=== PATIENT | female | born 1980 | race Caucasian/White ===

== ENCOUNTER → 2016-10-10 | Outpatient (CLI) | payer BC ==
--- NOTE | 2016-10-10 17:31 | XR ---
EXAMINATION TYPE: XR shoulder complete LT DATE OF EXAM: 10/10/2016 5:24 PM CLINICAL HISTORY: pain COMPARISON: NONE TECHNIQUE: Three views of the left shoulder are obtained. FINDINGS: There is no acute fracture/dislocation evident. The acromioclavicular and glenohumeral stan int spaces appear within normal limits. The visualized ribs are intact and unremarkable. IMPRESSION: 1. There is no acute fracture or dislocation. ICD 10 NO FRACTURE, INITIAL EVALUATION
== END ==
LOC: RADXRMAIN 17:11
PROVIDERS: ATTEND Family Medicine
DX: M25.512 Pain in left shoulder (principal)

== ENCOUNTER → 2016-10-22 | Outpatient (CLI) | payer BC ==
--- NOTE | 2016-10-22 18:24 | MR ---
EXAMINATION TYPE: MR shoulder LT wo con DATE OF EXAM: 10/22/2016 5:35 PM COMPARISON: Plain film second October 2016, October 2016 HISTORY: Left shoulder pain, S/P fall on ice 4 months ago TECHNIQUE: Multiplanar, multisequence imaging of the left shoulder is performed without contrast. FINDINGS: Rotator Cuff: There is abnormal increased signal within the rotator cuff, fluid signal is present at the level of the acromion tip. Increased signal on T1 and T2-weighted sequences present within the th ickened tendon at the level of the insertion. Acromioclavicular Joint: Intact Glenohumeral Joint: No significant arthropathy. Small amount of joint fluid. Labrum: The labrum appears grossly intact given limitation of non-arthrogram study. Biceps Tendon: The long head of biceps is in normal location within bicipital groove. Bone marrow signal: No focal abnormal marrow signal is appreciated. Other: Some fluid signal present in the subacromial subdeltoid bursa. The distal acromion is downturn ed. IMPRESSION: Suspect underlying tendinosis of the rotator cuff, a partial thickness tear is also suspected, there may be a distal acromial spur with impingement, correlate.
== END | disposition home or self-care (01) ==
LOC: RADMRIMAIN 16:42
PROVIDERS: ATTEND Orthopaedic Surgery
DX: M25.512 Pain in left shoulder (principal)

== ENCOUNTER → 2016-10-28 | Outpatient (CLI) | payer BC ==
--- NOTE | 2016-10-28 12:07 | ECHOF ---
Referral Reason:R07.89 chest pain MEASUREMENTS -------- HEIGHT: 165.1 cm WEIGHT: 96.2 kg BP: 120/86 RVIDd: 1.9 cm (< 3.3) IVSd: 1.0 cm (0.6 - 1.1) LVIDd: 4.0 cm (3.9 - 5.3) LVPWd: 1.1 cm (0.6 - 1.1) IVSs: 1.5 cm LVIDs: 2.8 cm LVPWs: 1.1 cm LA Diam: 3.2 cm (2.7 - 3.8) LAESV Index (A-L): 14.49 ml/m Ao Diam: 3.3 cm (2.0 - 3.7) AV Cusp: 2.2 cm (1.5 - 2.6) LA Diam: 3.1 cm (2.7 - 3.8) MV EXCURSION: 14.577 mm (> 18.000) MV EF SLOPE: 75 mm/s (70 - 150) EPSS: 0.2 cm MV E Arsenio: 0.61 m/s MV DecT: 322 ms MV A Arsenio: 0.54 m/s MV E/A Ratio: 1.12 RAP: 5.00 mmHg RVSP: 12.14 mmHg FINDINGS -------- Sinus rhythm. This was a technically adequate study. There is borderline concentric left ventricular hypertrophy. Overall left ventricular systolic function is normal with, an EF between 55 - 60 %. The right ventricle is normal in size. Normal LA size by volume 22+/-6 ml/m2. The right atrial size is normal. There is mild aortic valve sclerosis. There is no evidence of aortic regurgitation. Mild mitral annular calcification present. Mild mitral regurgitation is present. Mild tricuspid regurgitation present. There is no evidence of pulmonary hypertension. The right ventricular systolic pressure, as measured by Doppler, is 12.14mmHg. There is no pulmonic regurgitation present. The aortic root size is normal. There is no pericardial effusion. CONCLUSIONS -------- 1. There is borderline concentric left ventricular hypertrophy. 2. Overall left ventricular systolic function is normal with, an EF between 55 - 60 %. 3. There is mild aortic valve sclerosis. 4. Mild mitral annular calcification present. 5. Mild mitral regurgitation is present. 6. Mild tricuspid regurgitation present. 7. There is no evidence of pulmonary hypertension. 8. The right ventricular systolic pressure, as measured by Doppler, is 12.14mmHg. GMAT INSTRUCTOR: Laxmi Martinez RDCS
--- NOTE | 2016-10-28 14:02 | US ---
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 GLAND SIZE: Right Lobe: 5.4 x 1.5 x 1.6 cm Overall Parenchyma: mildly heterogeneous Left Lobe: 5.3 x 1.4 x 1.5 cm Overall Parenchyma: mildly heterogeneous Isthmus Thickness: 0.4 cm NODULES RIGHT: # of nodules measured on right: 0 LEFT: # of nodules measured on left: 0 ISTHMUS: # of nodules measured in the isthmus: 0 TECHNOLOGIST IMPRESSION: Bilateral neck scanned, no abnormal lymphadenopathy noted. IMPRESSION: Thyroid gland is upper limits of normal in size and slightly heterogeneous in appearance but no discr ete solid or cystic nodules are evident.
--- NOTE | 2016-10-29 13:46 | EST ---
DATE OF SERVICE: 10/28/16. AGE: 36Y SEX: F HT: 66" WT: 212lbs. Protocol Kishan: X Others: Stage: 2 Dur. of Exercise: 7:00 *Heart Rate Blood Pressure *Rest: 73 Rest: 131/10 * *Max. Achieved: 157 Maximum BP: 213/85 85% PMHR: 100% PMHR: 184 *METS: 7.5 INDICATIONS: Chest pain. MEDICATIONS: Pretesting physical examination showed the heart rate of 73. Pressure is 131/101 mercury Baseline EKG showed sinus rhythm, the patient exercised on the treadmill according to Kishan protocol for a total 7 minutes and achieved 7.05 METs. Max heart rate was 157, which is about 85% of maximum predicted heart rate. Maximum blood pressure is 213/85 mmHg. Clinically, the patient did not have any symptoms of chest pain or discomfort and the EKG did not show any significant ST or T wave abnormalities consistent with ischemia. CONCLUSION: 1. Good exercise capacity. 2. Normal EKG in response to exercise. 3. An overall normal stress test for this patient.
== END ==
LOC: RADUSMAIN 09:16
PROVIDERS: ATTEND Family Medicine
DX: I51.7 Cardiomegaly (principal); I08.3 Combined rheumatic disorders of mitral, aortic and tricuspid valves; E01.0 Iodine-deficiency related diffuse (endemic) goiter
CPT/HCPCS: 76536; 93017; 93306

== ENCOUNTER → 2018-09-29 | Outpatient (CLI) | payer BC ==
[2018-09-30 02:40] LABS: T4, Free (Free Thyroxine) 0.9 ng/dL (0.80-1.80)
== END ==
LOC: LABWHC1 15:48
PROVIDERS: ATTEND Otolaryngology
DX: R53.83 Other fatigue (principal)
CPT/HCPCS: 36415; 84439; 84443

== ENCOUNTER → 2018-10-28 | Outpatient (CLI) | payer BC ==
--- NOTE | 2018-10-28 08:51 | CT ---
EXAMINATION TYPE: CT sinus wo con DATE OF EXAM: 10/28/2018 COMPARISON: NONE HISTORY: Chronic sinusitis per order. Continued sinus infections with headaches, change in vision, an d congestion per patient. CT DLP: 581.4 mGycm. Automated Exposure Control for Dose Reduction was Utilized. TECHNIQUE: CT scan of the sinuses is performed without contrast, axial images are obtained, coronal r eformatted images are also reviewed. FINDINGS: The paranasal sinuses including the frontal, ethmoid, sphenoid, and maxillary sinuses bila terally are well-aerated without abnormal opacification. The ostiomeatal complex is patent bilateral ly on the coronal images. Nasal septum is deviated to right of midline. Visualized portion of mastoid air cells show no abnormal opacification. The globes are intact bilate rally. Visualized portion of brain parenchyma is unremarkable. IMPRESSION: The sinuses are clear and the ostiomeatal complex is patent bilaterally.
== END | disposition home or self-care (01) ==
LOC: RADCTMAIN 07:23
PROVIDERS: ATTEND Otolaryngology
DX: J32.9 Chronic sinusitis, unspecified (principal)
CPT/HCPCS: 70486

== ENCOUNTER → 2020-01-05 | Outpatient (CLI) | payer BC ==
--- NOTE | 2020-01-05 17:20 | US ---
EXAMINATION TYPE: US pelvic complete DATE OF EXAM: 01/05/2020 COMPARISON: CT 2011 CLINICAL HISTORY: R10.2 pelvic pain. Left pelvic pain x couple weeks, 1, para 1, history of t ubal ligation and uterine ablation. TECHNIQUE: Transvaginal only per ordering physician. Date of LMP: 1 week ago EXAM MEASUREMENTS: Uterus: 10.5 x 6.4 x 6.1 cm Endometrial Stripe: n/a Right Ovary: 3.4 x 2.3 x 2.1 cm Left Ovary: 3.3 x 2.1 x 2.1 cm 1. Uterus: anteverted, heterogeneous with 4.3 x 4.3 x 4.7cm hypoechoic area, probable fibroid 2. Endometrium: unable to visualize due to distortion 3. Right Ovary: 1.9cm cystic area 4. Left Ovary: multiple follicles 5. Bilateral Adnexa: wnl 6. Posterior cul-de-sac: wnl Small nabothian cysts seen in the cervix on initial images. Markedly heterogeneous prominent uterus w ith suspected 4.7 cm left-sided fibroid causing lobulation. Poor visualization of the endometrium due to heterogeneous round central mass. No free fluid in pelvic cul-de-sac. Both ovaries seen with scattered peripheral follicles and slightly more prominent follicles or simple thin-walled cysts in the right ovary. No concerning adnexal masses are present. IMPRESSION: No suspicious findings seen to account for patient's symptoms of left pelvic pain. Underl kailash uterine fibroid disease noted.
== END | disposition home or self-care (01) ==
LOC: RADUSWWP 15:23
PROVIDERS: ATTEND Obstetrics & Gynecology
DX: D25.9 Leiomyoma of uterus, unspecified (principal)
CPT/HCPCS: 76830

== ENCOUNTER → 2020-03-17 | Outpatient (CLI) | payer BC ==
--- NOTE | 2020-03-17 15:29 | US ---
EXAMINATION TYPE: US transvaginal DATE OF EXAM: 03/17/2020 COMPARISON: US 01/05/20 CLINICAL HISTORY: R10.2 PELVIC PAIN,D25.9 UTERINE LEIOMYOMA. TECHNIQUE: Transvaginal (TV). Transabdominal sonographic images of the pelvis were acquired. Trans vaginal sonographic images were medically necessary to better assess the following anatomy: TV only p er physician Date of LMP: 03/11/2020 EXAM MEASUREMENTS: Uterus: 10.3 x 8.0 x 7.3 cm Endometrial Stripe: Not well seen due to distortion cm Right Ovary: 3.2 x 1.8 x 1.7 cm Left Ovary: 3.0 x 2.4 x 2.3 cm 1. Uterus: Anteverted with left sided fibroid = 5.2 x 4.6 x 4.5 cm 2. Endometrium: Not well seen 3. Right Ovary: with follicles 4. Left Ovary: with follicles Spectral, color and waveform doppler imaging shows good arterial and venous flow within the ovaries ; there is no evidence for ovarian torsion. 5. Bilateral Adnexa: wnl 6. Posterior cul-de-sac: wnl IMPRESSION: 1. The uterus is enlarged measuring 10.3 x 8 x 7.3 cm and contains a 5.2 cm left-sided myometrial mas s most typical of fibroids. 2. Endometrium is not seen due to the myometrial mass.
== END | disposition home or self-care (01) ==
LOC: RADUSWWP 14:42
PROVIDERS: ATTEND Obstetrics & Gynecology
DX: N85.2 Hypertrophy of uterus (principal); D25.9 Leiomyoma of uterus, unspecified; N85.8 Other specified noninflammatory disorders of uterus
CPT/HCPCS: 76830

== ENCOUNTER → 2020-05-01 | Outpatient (CLI) | payer BC ==
[2020-05-01 09:56] LABS: Basophils # (A) 0.1 k/uL (0-0.2); Basophils % (A) 1 %; Eosinophils # (A) 0.2 k/uL (0-0.7); Eosinophils % (A) 2 %; HCT 41.9 % (34.0-46.0); Lymphocytes # (A) 2.5 k/uL (1.0-4.8); Lymphocytes % (A) 31 %; MCH 30.6 pg (25.0-35.0); MCHC 33.5 g/dL (31.0-37.0); MCV 91.2 fL (80.0-100.0); Mean Platelet Volume 7.6; Monocytes # (A) 0.5 k/uL (0-1.0); Monocytes % (A) 7 %; Neutrophils # (A) 4.8 k/uL (1.3-7.7); Neutrophils % (A) 59 %; Platelet Count 292 k/uL (150-450); RBC 4.59 m/uL (3.80-5.40); RDW 11.9 % (11.5-15.5); WBC 8.1 k/uL (3.8-10.6)
[2020-05-01 10:07] LABS: African American GFR (CKD) >90 (>60 ml/min/1.73 sqM); Anion Gap 9 mmol/L; Blood Urea Nitrogen 9 mg/dL (7-17); Calcium 9.2 mg/dL (8.4-10.2); Carbon Dioxide 25 mmol/L (22-30); Chloride 105 mmol/L (98-107); Glucose 87 mg/dL (74-99); Non-African American GFR(CKD) >90 (>60 ml/min/1.73 sqM); Potassium 4.5 mmol/L (3.5-5.1); Sodium 139 mmol/L (137-145)
== END | disposition home or self-care (01) ==
LOC: LABWHC1 07:38
PROVIDERS: ATTEND Obstetrics & Gynecology
DX: Z01.818 Encounter for other preprocedural examination (principal)
CPT/HCPCS: 36415; 80048; 85025; 86850; 86900; 86901

== ENCOUNTER 2020-05-11 06:02 | Observation (INO) | payer BC ==
[2020-05-08 14:35] VITALS: BMI 31.3
--- NOTE | 2020-05-10 16:46 | P.HPOB ---
History of Present Illness H&P Date: 05/10/20 Chief Complaint: Fibroid uterus Fe is a 40-year-old female with a fibroid uterus. She has significant pain and discomfort due to fibroids and she is scheduled for a robotic-assisted laparoscopic hysterectomy with bilateral salpingectomy possible ALEK possible BSO for same. Risks/benefits/alternatives to this procedure were reviewed with the patient in detail and all questions were answered for her prior to proceeding to the operative room. The symptoms have been present for a extended timeframe and a severely limited her ability to function and to her activities of daily living. She has in the past had a NovaSure ablation for menorrhagia she does still have bleeding and is heavy for at least 1 day and then she continues to have normal bleeding past that. 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 Heart regular, lungs clear, extremities without pain. Abdomen soft and nontender with positive bowel sounds. uterus is somewhat bulky otherwise pelvic exam is normal. Assessment fiber uterus pelvic pain Plan robotic-assisted laparoscopic hysterectomy with bilateral salpingectomy possible ALEK and possible BSO. Risks/benefits/alternatives were reviewed includ ing but not limited to bleeding and infection, damage to bladder, damage to bowel, vascular injuries, nerve injuries, ureteral damage. Potential for other surgeries depending on findings. Past Medical History Past Medical History: Skin Disorder Additional Past Medical History / Comment(s): hx migraines, psoriasis, hx kidney stones, uterine fibroid History of Any Multi-Drug Resistant Organisms: None Reported Past Surgical History: Adenoidectomy, Cholecystectomy, Tonsillectomy, Tubal Ligation Past Anesthesia/Blood Transfusion Reactions: No Reported Reaction Smoking Status: Former smoker - Past Family History Mother Family Medical History: Cancer Medications and Allergies Home Medications Medication Instructions Recorded Confirmed Type Acetaminophen [Tylenol Extra 500 mg PO DIRECTED PRN 05/08/20 05/08/20 History Strength] Dietary Supplement 1 tab PO DIRECTED 05/08/20 05/08/20 History Naproxen Sodium 550 mg PO BID PRN 05/08/20 05/08/20 History Allergies Allergy/AdvReac Type Severity Reaction Status Date / Time Penicillins Allergy Rash/Hives Verified 05/08/20 14:27 Exam Osteopathic Statement: *. No significant issues noted on an osteopathic structural exam other than those noted in the History and Physical/Consult.
[~2020-05-11 06:02] MED LIST: DEXAMETHASONE SOD PHOSPHATE 10 MG/ML 1 ML VIAL IV ONE; HYDROmorphone 0.5 MG/0.5 ML SYRINGE IVP PRN; LACTATED RINGERS 1,000 ML IV SCH; ONDANSETRON 4 MG/2 ML VIAL IVP ONE
[2020-05-11] MEDS ORDERED: LIDOCAINE 1% (10MG/ML) FOR IV START INTRADERMA ONE (06:32)
[2020-05-11] MEDS ORDERED: MIDAZOLAM 2 MG/2 ML VIAL ONE (07:26)
[2020-05-11] MEDS ORDERED: NEOSTIGMINE 1 MG/ML 10 ML VIAL ONE (07:26)
[2020-05-11] MEDS ORDERED: GLYCOPYRROLATE 0.2 MG/ML 2 ML VIAL ONE (07:26)
[2020-05-11] MEDS ORDERED: PROPOFOL 10 MG/ML 20 ML VIAL IV ONE (07:26)
[2020-05-11] MEDS ORDERED: ROCURONIUM BROMIDE 10 MG/ML 5 ML VIAL IV ONE (07:26)
[2020-05-11] MEDS ORDERED: LIDOCAINE 1% INJ 10MG/ML (20 ML MDV) ONE (07:26)
[2020-05-11] MEDS ORDERED: HYDROmorphone (PF) 1 MG/ML ONE (07:26)
[2020-05-11] MEDS ORDERED: fentaNYL (PF) 50 MCG/ML 2 ML AMP ONE (07:26)
[2020-05-11] MEDS ORDERED: METHYLENE BLUE 50 MG/10 ML AMPUL ONE (07:26)
[2020-05-11] MEDS ORDERED: LACTATED RINGERS 1,000 ML IV ONE ×2 (08:23→09:20)
[2020-05-11] MEDS ORDERED: BUPIVACAINE (PF) 0.25% 30 ML VIAL SQ ONE (08:26)
[2020-05-11] MEDS ORDERED: CELLULOSE,OXIDIZED 1 EACH EACH MISCELLANE ONE (09:12)
[2020-05-11] MEDS ORDERED: SIMETHICONE 80 MG CHEWABLE PO PRN (09:51)
[2020-05-11] MEDS ORDERED: HYDROcodone/APAP 7.5-325MG 1 EACH TAB PO PRN (09:56)
--- NOTE | 2020-05-11 10:08 | P.OP ---
Date of Procedure: 05/11/20 Preoperative Diagnosis: Fibroid uterus: Pelvic pain: Failed NovaSure Postoperative Diagnosis: Same with stage IV endometriosis Procedure(s) Performed: Robotic-assisted left scopic hysterectomy bilateral salpingectomy. Lysis of adhesions desiccation of endometriosis Anesthesia: DEMETRIUS Surgeon: Cruz Soto Rn Patient Care #1: Freda Chery Estimated Blood Loss (ml): 100 IV fluids (ml): 1,500 Urine output (ml): 1,000 Pathology: other (Uterus, cervix and fallopian tubes) Condition: stable Disposition: floor Operative Findings: Stage IV endometriosis with both ovaries pulled posteriorly and full of what gilma ears endometriotic fluid similar to an endometrioma area and they were stuck to the posterior uterine wall ovaries were stuck in the posterior cul-de-sac there was scattered endometriosis throughout the abdomen and pelvis as well. Description of Procedure: Patient was taken to the operating suite where a general anesthetic was found be adequate. She was prepped and draped in normal sterile fashion and placed in dorsal lithotomy position. Initially a weighted speculum was inserted in the vagina and into lip of the cervix identified and grasped with an Allis clamp. C ervix was then dilated and sounded to 8 cm. Cup size was 4 cm. Stay sutures were placed at 3 and 9. Sharifa manipulator was then inserted without difficulty and other incidents removed and Arriola cath was placed. Gloves were then changed and attention was turned to abdominal portion procedure where 3 mL of quarter percent Marcaine was injected approximately 2 cm superior to the umbilicus as that was the what appeared to be the maximal Ascent of the uterus proxy one hands possible. Once this was completed a 5 mm skin incision was made and through this incision under direct visualization with an optical trocar and sleeve the camera was inserted. Once peritoneal placement was assured gas was allowed to fully insufflate the abdomen and patient was then placed in steep Trendelenburg position. 2 lateral ports were then placed just inferior to the umbilicus 10-12 cm lateral to the umbilicus. These were through 8 mm skin incisions and then she ports were used. Full port and sleeve was then inserted between the left lateral and the medial port through 1 set immune incision. Camera port was exchanged for robotic port and the robot was brought in and docked. At this point I broke scrub and went to the console with scissor and the one arm and [place] grasper and 3 arm. Once this was completed observations pelvis were noted uterus was enlarged and globular endometriosis was noted throughout the anterior pelvis and along the lateral sidewalls. It is also noted that the uterus was relatively stuck in the posterior cul-de-sac once uterus was elevated endometrioma-like fluid was noted in the fallopian tubes were scarred to the posterior uterine wall we were able to free these up with gentle and sharp traction and initially because we need to be poorly face the uterus higher I did excise the left fallopian tube as well on at the fimbriated end as well as the piece that was attached the posterior uterine wall this allowed us to fully elevate the uterus there was some scarring near the rectum which was left alone there was a large pocket of endometriosis just superior to the right uterosacral ligament. Blunt and sharp dissection some filmy adhesions was also managed. Once this was accomplished the left utero-ovarian bleeding was identified cauterized transected the broad limited tissues were cauterized and transected the round ligament which was also cauterized and transected. Filmy tissue was then skeletonized to get access to the uterine vasculature. Anterior posterior leafs broad ligament were then dissected out of the area and vascularity was cauterized. Bladder flap was then identified and entered with [place] grasper and excised across face the uterus with the scissor. Bladder was then bluntly dissected out of the operative field. Assessment of the right side of the uterus was then done again tip of the fallopian tube was excised utero-ovarian ligament on this side was identified cauterized and transected the fallopian tube was attached posterior uterus were able actually work around on this side and therefore the broad limited tissues were cauterized transected the round ligament round ligament was again tract cauterized and transected and then the anterior posterior leaves were developed. Uterine vascularity was then cauterized. Some of the scattered endometriosis implants were also desiccated during this process. Once down to the bladder flap on this side yesterday was verified cauterized and the balloon was blown up in the Sharifa manipulator. Uterus was then as best as possible retroverted which was very difficult due to the size of the uterus and limited mobility due to the endometriosis. Anterior colpotomy was then made and this was followed around counterclockwise until the vascularity was cauterized on the left. During this process one vessel was noted bleeding and I could not visualize it quite well enough to obtain hemostasis so we were able to grasp around or near the vessel so that there was no bleeding at this time. During this process we were able to place a fourth port and sleeve between the right lateral and the medial ports and through this port the scissor was moved to that port and a cardia grasper was moved to the far lateral port this enabled me to be able to manipulate the uterus completely out of the way sounds able to identify the vascularity issue with a bleeding area which was then easily cauterized. Once excellent hemostasis was obtained over this area we were able to continue with following the blue couple around once 3 and 60 was obtained the uterus was brought down into the vagina and a small piece of dilated fallopian tube was placed in the vagina as well. We were then able to obtain excellent hemostasis across the pedicles and through the vaginal cuff area. All incidents were then removed and exchanged for a make suture cut and a cardia grasper and then to OB lock suture was used to in a running fashion, close the vaginal cuff. Once excellent hemostasis was noted across this area a decision to place a piece of Interceed over the left cuff area was done as it was very raw on the edges as the peritoneum posteriorly was unable to be brought up into that area. All incidents were then removed and gas was allowed to fully expel from the abdomen. 5 deep breaths were provided during this process. At this point I did re-scrub in and do a cystoscopy while Dr. Chery close incision subcuticular. The remaining lidocaine was then injected around the incisions. During the cystoscopy I suspect, due to her being so well-hydrated, with very clear urine noted I was unable to be 100% certain of flow from the left ureteral jets therefore methylene blue was added IV and following approximately 8 minutes of waiting clear demonstration of patency was done as blue urine was noted coming from both the right and left ureters. Arriola catheter was then replaced. Sponge, lap, needle counts were all correct 2. Patient was then taken to this recovery room in stable and satisfactory condition.
[2020-05-11] MEDS: KETOROLAC 15 MG/ML 1 ML VIAL IVP PRN ×2 (12:10→20:25)
[2020-05-11] MEDS ORDERED: INFLUENZA VACCINE (6 MOS+) 60 MCG/0.5 ML SYRINGE IM ONE (12:16)
[2020-05-11] MEDS: ONDANSETRON 4 MG/2 ML VIAL IVP PRN ×2 (16:12→23:26)
[2020-05-11] MEDS: SENNOSIDES-DOCUSATE SODIUM 1 EACH TAB PO SCH (20:22)
[2020-05-12] MEDS: KETOROLAC 15 MG/ML 1 ML VIAL IVP PRN ×2 (03:30→11:30)
[2020-05-12] MEDS: SENNOSIDES-DOCUSATE SODIUM 1 EACH TAB PO SCH (08:24)
[2020-05-12] MEDS: ONDANSETRON 4 MG/2 ML VIAL IVP PRN (08:31)
--- NOTE | 2020-05-12 08:52 | P.PN ---
Progress Note - Text Progress Note Date: 05/12/20 Judi seen and evaluated this point. She relates that throughout the night until proxy 2 AM she had persistent nausea and vomiting. She is not tolerated any real food and only limited liquids. She is tolerating crackers at this time the last time she Was approximately 2 AM. We'll plan to continue observational care through the morning and reevaluate the afternoon if she is feeling significantly improved we'll plan discharged home at that time. All the questions are answered for her at this time continue current care.
[2020-05-12 09:41] LABS: Basophils % (A) 0 %; Eosinophils % (A) 0 %; HCT 35.5 % (34.0-46.0); HGB 12.2 gm/dL (11.4-16.0); Lymphocytes # (A) 1.4 k/uL (1.0-4.8); Lymphocytes % (A) 8 %; MCH 30.9 pg (25.0-35.0); MCHC 34.2 g/dL (31.0-37.0); MCV 90.4 fL (80.0-100.0); Mean Platelet Volume 6.9; Monocytes # (A) 1.7 k/uL (0-1.0); Monocytes % (A) 9 %; Neutrophils # (A) 15.5 k/uL (1.3-7.7); Neutrophils % (A) 82 %; Platelet Count 302 k/uL (150-450); RBC 3.93 m/uL (3.80-5.40); RDW 12.7 % (11.5-15.5)
[2020-05-12 12:12] VITALS: BP 127/77; PULSE 92; RESP 20
--- NOTE | 2020-05-12 13:50 | P.DS ---
Providers Date of admission: 05/11/20 23:26 Expected date of discharge: 05/12/20 Attending physician: Cruz Soto Primary care physician: [facility] Course: Fili is doing much better and Ceftin. She is tolerating a diet and her nausea is essentially resolved. All questions are answered for her prior to discharge. Discharge instructions were thoroughly reviewed and all questions were answered for her prior to proceeding her discharge. Her vital signs otherwise stable. Heart regular, lungs clear, extremities without pain. Abdomen soft incision intact and she has positive bowel sounds. Assessment postop day 1. Plan discharged home follow up with me in 1 week. Prescription for Motrin and [place] forward to her pharmacy. Patient Condition at Discharge: Good Plan - Discharge Summary Discharge Rx Participant: Yes New Discharge Prescriptions: New Ibuprofen [Motrin] 600 mg PO Q6HR PRN #30 tab PRN Reason: Pain HYDROcodone/APAP 5-325MG [[place] 5-325] 1 tab PO Q4HR PRN #30 tab PRN Reason: Pain No Action Naproxen Sodium 550 mg PO BID PRN PRN Reason: Pain Acetaminophen [Tylenol Extra Strength] 500 mg PO DIRECTED PRN PRN Reason: Pain Dietary Supplement 1 tab PO DIRECTED Influenza Vaccine (6 Mos+) [Flulaval Vaccine ] 60 mcg IM ONCE Discharge Medication List Acetaminophen [Tylenol Extra Strength] 500 mg PO DIRECTED PRN 05/08/20 [History] Dietary Supplement 1 tab PO DIRECTED 05/08/20 [History] Naproxen Sodium 550 mg PO BID PRN 05/08/20 [History] Influenza Vaccine (6 Mos+) [Flulaval Vaccine ] 60 mcg IM ONCE 05/11/20 [History] HYDROcodone/APAP 5-325MG [[place] 5-325] 1 tab PO Q4HR PRN #30 tab 05/12/20 [Rx] Ibuprofen [Motrin] 600 mg PO Q6HR PRN #30 tab 05/12/20 [Rx] Follow up Appointment(s)/Referral(s): Cruz Soto DO [Doctor of Osteopathic Medicine] - 1 Week Patient Instructions/Handouts: Endometriosis (GEN) Activity/Diet/Wound Care/Special Instructions: : Surgeon driving, and pelvic rest. If any high temperatures, heavy bleeding, or severe pain call my office Discharge Disposition: HOME SELF-CARE
[2020-05-12 14:26] VITALS: TEMP 98.9
== END 2020-05-12 14:44 | disposition home or self-care (01) ==
LOC: OR 06:02 → 6PED 09:43 → OR 23:31
PROVIDERS: ADMIT Obstetrics & Gynecology; ATTEND Obstetrics & Gynecology
DX: D25.9 Leiomyoma of uterus, unspecified (principal); N80.0 Endometriosis of uterus; N80.2 Endometriosis of fallopian tube; R11.2 Nausea with vomiting, unspecified; L40.9 Psoriasis, unspecified; Z87.442 Personal history of urinary calculi; G43.909 Migraine, unspecified, not intractable, without status migrainosus; Z90.49 Acquired absence of other specified parts of digestive tract; Z98.51 Tubal ligation status; Z98.890 Other specified postprocedural states; Z87.891 Personal history of nicotine dependence; Z80.9 Family history of malignant neoplasm, unspecified; Z88.0 Allergy status to penicillin
CPT/HCPCS: 58572; S2900; 81025; 85025; 86850; 86900; 86901; 88307; 90686

== ENCOUNTER → 2020-06-29 | Outpatient (CLI) | payer BC | END | disposition home or self-care (01) | LOC: LABWHC1 10:44 | PROVIDERS: ATTEND Family Medicine | DX: Z03.818 Encounter for observation for suspected exposure to other biological agents ruled out (principal) | CPT/HCPCS: U0003; C9803 ==

== ENCOUNTER → 2022-06-07 | Outpatient (CLI) | payer BC ==
--- NOTE | 2022-06-07 13:56 | XR ---
EXAMINATION TYPE: XR chest 2V DATE OF EXAM: 06/07/2022 COMPARISON: NONE HISTORY: Chest pain TECHNIQUE: Frontal and lateral views of the chest are obtained. FINDINGS: There is no focal air space opacity. No evidence for pneumothorax. No pleural effusion. The cardiac silhouette size is within normal limits. The osseous structures are grossly intact. IMPRESSION: 1. No acute cardiopulmonary process.
== END | disposition home or self-care (01) ==
LOC: RADXRMAIN 13:35
PROVIDERS: ATTEND Family Medicine
DX: J20.9 Acute bronchitis, unspecified (principal)
CPT/HCPCS: 71046

== ENCOUNTER → 2023-03-13 | Outpatient (CLI) | payer BC ==
--- NOTE | 2023-03-13 15:24 | CT ---
EXAMINATION TYPE: CT brain w con CT DLP: 1162.80 mGycm, Automated exposure control for dose reduction was used. DATE OF EXAM: 03/13/2023 3:15 PM COMPARISON: CT 10/28/2018. . CLINICAL INDICATION:Female, 42 years old with history of H53.9 vision changes; PHH, headache and visi on changes. TECHNIQUE: Axial CT images of the brain were obtained with coronal and sagittal reformats created and reviewed. Contrast used:100 mL of Isovue 300 with IV Contrast, Oral contrast used: none. FINDINGS: Extra-axial spaces: No abnormal extra-axial fluid collections. Ventricular system: Within normal limits Cerebral parenchyma: No acute intraparenchymal hemorrhage or mass effect. The donohue-white junction is well differentiated. No abnormal enhancement is seen after the administration of intravenous contras t. Cerebellum: Unremarkable. Mass effect: No evidence of midline shift. Intracranial vasculature: No evidence for aneurysm. The ophthalmic veins are opacified bilaterally. Soft tissues: Normal. Calvarium/osseous structures: No depressed skull fracture. Paranasal sinuses and mastoid air cells: Clear. Visualized orbits: Orbital contents are intact. IMPRESSION: No acute intracranial process. No abnormal postcontrast enhancement.
== END | disposition home or self-care (01) ==
LOC: RADCTMAIN 14:46
PROVIDERS: ATTEND Family Medicine
DX: H53.9 Unspecified visual disturbance (principal); R51.9 Headache, unspecified
CPT/HCPCS: 70460; Q9967

== ENCOUNTER 2024-03-28 11:41 | Emergency (ER) | payer BC ==
[2024-03-28] MEDS ORDERED: diphenhydrAMINE 50 MG/ML 1 ML VIAL ONE (13:03)
[2024-03-28] MEDS ORDERED: KETOROLAC 15 MG/ML 1 ML VIAL ONE (13:03)
[2024-03-28] MEDS ORDERED: ONDANSETRON 4 MG/2 ML VIAL ONE (13:03)
[2024-03-28] MEDS ORDERED: SODIUM CHLORIDE 0.9% 1,000 ML BAG ONE (13:05)
[2024-03-28] MEDS ORDERED: HYDROmorphone 0.5 MG/0.5 ML SYRINGE ONE (15:41)
--- NOTE | 2024-04-19 15:14 | CT ---
Patient Fe Jackson ID [id number] Order # EXAMINATION TYPE: CT brain wo con DATE OF EXAM: 03/28/2024 COMPARISON: No comparison available on downtime PACS. INDICATION: Headache, hypertension DLP: 1163.4 mGycm, Automated exposure control for dose reduction was used. CONTRAST: None CT of the brain is performed utilizing 3 mm thick sections through the posterior fossa and 3 mm thick sections through the remaining calvarium. Study is performed within 24 hours of arrival to the [facility]. No abnormal hyperdensity is present to suggest an acute intracranial hemorrhage. No mass lesion is evident. No acute infarcts are evident. Ventricles and sulci are appropriate for the patient age. Paranasal sinuses and mastoid air cells within the [id number] are clear. IMPRESSION: 1. No acute intracranial process. Follow up MRI can be performed as clinically indicated.
== END 2024-03-28 16:26 | disposition home or self-care (01) ==
LOC: EC 11:41 → EDSTATUS 15:33 → EC 16:26
DX: G43.909 Migraine, unspecified, not intractable, without status migrainosus (principal)
CPT/HCPCS: 70450; 93005; 96361; 96374; 96375; 99284